=== PATIENT | male | born 1980 | race Caucasian/White ===

== ENCOUNTER 2020-02-23 11:23 | Emergency (ER) | payer OTHER ==
[2020-02-23] MEDS ORDERED: TETANUS,DIPHTHERIA,PERTUSSIS 1 EA SYG IM ONE (12:00)
[2020-02-23] MEDS ORDERED: LIDOCAINE 1% W/ EPINEPHRINE 20 ML VIAL INJ ONE (12:39)
--- NOTE | 2020-02-23 12:54 | CT ---
Study: CT of the Head. CT of the Face. Indication: head trauma Technique: Axial CT images of the head were acquired without intravenous contrast. In addition, axial CT images were acquired of the face without intravenous contrast. Coronal and sagittal reformats performed. This exam was performed according to our departmental dose-optimization program, which includes automated exposure control, adjustment of the mA and/or kV according to patient size and/or use of iterative reconstruction technique. Comparison: None. Findings: No CT evidence of acute ischemia, acute hemorrhage, mass, mass effect, midline shift, or extra-axial fluid collection. Ventricles are normal in configuration without hydrocephalus. Brain parenchyma demonstrates a normal appearance for patient age. Paranasal sinuses are adequately aerated. Mastoid air cells are adequately aerated. Osseous structures and soft tissues are unremarkable. No facial fracture identified. Impression: No CT evidence of acute intracranial abnormality. No acute facial fracture. Electronically signed by: Lai Smith MD 02/23/2020 12:52 PM CDT
[2020-02-23] MEDS ORDERED: CLINDAMYCIN PHOSPHATE 150 MG/ML VIAL IM ONE (13:42)
--- NOTE | 2020-02-23 13:48 | ED.PDOC ---
History of Present Illness - General Chief Complaint: Laceration Stated Complaint: laceration - left side face Time Seen by Provider: 02/23/20 11:59 Source: patient, RN notes reviewed, Vital Signs reviewed Exam Limitations: no limitations - History of Present Illness Initial Comments: Patient is a 39-year-old white male who was out loading steel on his trailer when a piece fell and hit him in the left side of his periorbital area. There was no loss of consciousness. Patient was knocked to the ground. Patient denies any visual field changes. He denies any headache, numbness, tingling, nausea, vomiting or diarrhea. Nothing makes the pain better or worse. This happened just prior to arrival. There is no radiation of the pain. It is moderate in intensity. It is sharp and stabbing in nature. Occurred: just prior to arrival Severity: moderate Pain Location: head Method of Injury: direct blow Improving Factors: cold therapy Worsening Factors: nothing Loss of Consciousness: no loss of consciousness Associated Symptoms (Fall): denies symptoms Allergies/Adverse Reactions: Allergies Tramadol Allergy (Verified 02/23/20 12:03) Home Medications: Ambulatory Orders Clindamycin HCl [Cleocin] 300 mg PO Q6H #28 capsule 02/23/20 Review of Systems - Review of Systems Constitutional: States: no symptoms reported, see HPI. Denies: chills, fever, malaise, weakness EENTM: States: no symptoms reported. Denies: eye pain, blurred vision, tearing, double vision, ear pain, ear discharge, nose pain, nose congestion Respiratory: States: no symptoms reported. Denies: cough, short of breath, stridor, wheezing Cardiology: States: no symptoms reported. Denies: chest pain, palpitations, syncope Gastrointestinal/Abdominal: States: no symptoms reported. Denies: abdominal pain, diarrhea, nausea, vomiting Genitourinary: States: no symptoms reported Musculoskeletal: States: see HPI, other - Swelling around the left periorbital area laterally.. Denies: back pain, neck pain Skin: States: see HPI, other - 2 lacerations near the left periorbital area. 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 Hx Hepatitis C: No Surgical History: tonsillectomy - Vaccination History Hx Tetanus, Diphtheria Vaccination: No Hx Pneumococcal Vaccination: Yes - Social History Hx Tobacco Use: Yes Hx Chewing Tobacco Use: Yes Hx Alcohol Use: No - Activities of Daily Living Hospice Agency (if applicable):: None - Female History Patient is a Female of Child Bearing Age (10 -59 yrs old): No Patient : No Family Medical History - Family History Mother Family History: Unknown Physical Exam - Physical Exam General Appearance: Alert, Anxious, Obvious distress, Unkempt, Well Developed, Well Hydrated, Well Nourished Head Injury: no evidence of injury, active bleeding, contusions - Patient with mild ecchymoses periorbitally on the left., lacerations Eye Exam: bilateral normal ENT Exam: hearing grossly normal, no evidence of ENT injury, no dental injury Neck Exam: non-tender, full range of motion, normal alignment, normal inspection Cardiovascular/Respiratory: regular rate, rhythm, no M/R/G, normal peripheral pulses, no JVD, normal breath sounds, no respiratory distress Gastrointestinal/Abdominal: normal bowel sounds, non tender, soft Back Exam: normal inspection, no CVA tenderness, no vertebral tenderness Extremity Exam: no evidence of injury, normal range of motion, non-tender 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 - [place] Coma Score Best Eye Response (Paige): (4) open spontaneously Best Verbal Response ([place]): (5) oriented Best Motor Response (Paige): (6) obeys commands [place] Total: 15 Progress - Progress Progress: 02/23/20 13:51 Differential diagnosis: Laceration, periorbital fracture, skull fracture, intraparenchymal bleed among others. Patient tolerated the procedure well. Patient started on antibiotics. Patient able to ambulate without difficulty. Normal vision out of that left eye after the procedure. Plan on discharge home on antibiotics. Patient to return in 5 days for suture removal. Of discussed this plan of care with the patient and he voices understanding and agreement with the plan of care. Fernando Matt M.D. #[id number] - Results/Orders Results/Orders: Study: CT of the Head. CT of the Face. Indication: head trauma Technique: Axial CT images of the head were acquired without intravenous contrast. In addition, axial CT images were acquired of the face without intravenous contrast. Coronal and sagittal reformats performed. This exam was performed according to our departmental dose-optimization program, which includes automated exposure control, adjustment of the mA and/or kV according to patient size and/or use of iterative reconstruction technique. Comparison: None. Findings: No CT evidence of acute ischemia, acute hemorrhage, mass, mass effect, midline shift, or extra-axial fluid collection. Ventricles are normal in configuration without hydrocephalus. Brain parenchyma demonstrates a normal appearance for patient age. Paranasal sinuses are adequately aerated. Mastoid air cells are adequately aerated. Osseous structures and soft tissues are unremarkable. No facial fracture identified. Impression: No CT evidence of acute intracranial abnormality. No acute facial fracture. Electronically signed by: Lai Smith MD 02/23/2020 12:52 PM Procedures - Laceration/Wound Repair Left Face Wound Length (cm): 0.5 Wound's Depth, Shape: linear Wound Explored: clean Irrigated w/ Saline (cc's): 250 Betadine Prep?: No Anesthesia: Lidocaine w/ Epi Volume Anesthetic (cc's): 2 Wound Debrided: No wound debridement Wound Repaired With: dermabond Layer Closure?: No Sterile Dressing Applied?: No Splint Applied?: No Sling Applied?: No Progress: Patient tolerated the procedure well. There were no complications. Estimated blood loss less than 1 mL. Wound closed with Dermabond. Good wound edge approximation. Left Upper Face Wound Length (cm): 5.0 Wound's Depth, Shape: into muscle, irregular, flap Wound Explored: no foreign body removed Irrigated w/ Saline (cc's): 250 Betadine Prep?: No Anesthesia: Lidocaine w/ Epi Volume Anesthetic (cc's): 5 Wound Debrided: No wound debridement Wound Repaired With: sutures Suture Size/Type: 6:0, prolene Number of Sutures: 11 Layer Closure?: No Sterile Dressing Applied?: No Splint Applied?: No Sling Applied?: No Progress: Wound extended from the lateral aspect of the left cheek superiorly over the but under the eyebrow. It was a deep laceration but was superficially closed at the skin level.Wound was extensively irrigated with at least 250 mL's of normal saline. No foreign bodies were noted. Wound was closed with 6-0 Prolene, simple interrupted sutures. Estimated blood loss less than 3 mL's. Patient tolerated the procedure well. There were no complications. Wound edges well approximated and hemostasis achieved. Departure - Departure Clinical Impression: Need for prophylactic vaccination against diphtheria, tetanus, acellular pertussis, poliovirus, and hepatitis B virus Facial laceration Qualifiers: Encounter type: initial encounter Qualified Code(s): S01.81XA - Laceration without foreign body of other part of head, initial encounter Eyelid laceration, left Qualifiers: Encounter type: initial encounter Qualified Code(s): S01.112A - Laceration without foreign body of left eyelid and periocular area, initial encounter Facial contusion Qualifiers: Encounter type: initial encounter Qualified Code(s): S00.83XA - Contusion of other part of head, initial encounter Periorbital contusion of left eye Qualifiers: Encounter type: initial encounter Qualified Code(s): S05.12XA - Contusion of eyeball and orbital tissues, left eye, initial encounter Time of Disposition: 13:58 Disposition: Discharge to Home or Self Care Condition: Good Departure Forms: ED Discharge - Pt. Copy, Patient Portal Self Enrollment Instructions: DI for Laceration Repair, DI for Laceration Repair With Dermabond Diet: resume usual diet Activity: increase activity as tolerated Prescriptions: Clindamycin HCl [Cleocin] 300 mg PO Q6H #28 capsule Home Medications: Ambulatory Orders Clindamycin HCl [Cleocin] 300 mg PO Q6H #28 capsule 02/23/20 Additional Instructions: Patient return in 5 days for suture removal. Patient to start antibiotics today.
[2020-02-23 14:09] VITALS: BP 145/93; TEMP 97.9; O2SAT 97
== END 2020-02-23 14:09 | disposition home or self-care (01) ==
LOC: ER 11:23
DX: S01.81XA Laceration without foreign body of other part of head, initial encounter (principal); W22.8XXA Striking against or struck by other objects, initial encounter; S00.83XA Contusion of other part of head, initial encounter; S01.112A Laceration without foreign body of left eyelid and periocular area, initial encounter; S05.12XA Contusion of eyeball and orbital tissues, left eye, initial encounter; Y92.9 Unspecified place or not applicable
CPT/HCPCS: 70450; 70480; 90471; 90715; J3490

== ENCOUNTER 2020-03-05 15:19 | Emergency (ER) | payer OTHER ==
--- NOTE | 2020-03-05 15:45 | ED.PDOC ---
History of Present Illness - General Chief Complaint: General Stated Complaint: Bilateral rib pain Time Seen by Provider: 03/05/20 15:21 - History of Present Illness Initial Comments: 39 yo male with pmh of gout, was moving metal on a trailer on February 17 and loss his balance and fell over head first. He was evaluated at this time, and had negative workup. Had large laceration on left eyebrow, with 14 sutures placed. He was suppose to have sutures removed on February 27, but didn't think they were ready to come out. Since his injury he has had continued bilateral rib pain. Feel short of breath, but no chest pain. Otherwise doing well without complaints. no change in mental status. Denies Smoking or ETOH. no new injury. no fever. Allergies/Adverse Reactions: Allergies Tramadol Allergy (Verified 03/05/20 15:56) Review of Systems - Review of Systems Constitutional: Denies: chills, diaphoresis, fever, weakness EENTM: Denies: eye pain, tearing, double vision, ear discharge, nose congestion Respiratory: States: short of breath. Denies: cough, orthopnea, stridor Cardiology: Denies: chest pain, edema, palpitations, syncope Gastrointestinal/Abdominal: Denies: abdominal pain, diarrhea, nausea, vomiting Genitourinary: Denies: frequency Musculoskeletal: States: muscle pain. 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 Hx Hepatitis C: No - Vaccination History Hx Tetanus, Diphtheria Vaccination: No Hx Pneumococcal Vaccination: Yes - Social History Hx Tobacco Use: Yes Hx Chewing Tobacco Use: Yes Hx Alcohol Use: No - Female History Patient : No Family Medical History - Family History Mother Family History: Unknown Physical Exam - Physical Exam General Appearance: Alert, Comfortable Eye Exam: left other - lateral to left eybrown 14 sutures placed, appears well adhered without drainage or sign of infection, bilateral normal Ears, Nose, Throat: hearing grossly normal, normal ENT inspection Neck: non-tender, full range of motion, supple, normal inspection Respiratory: lungs clear, normal breath sounds, no respiratory distress, no accessory muscle use - bilateral rib tenderness without brusing . 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 Bedside Fast negative. Declines anything for pain. The data reviewed when caring for this patient included: nurse notes etc. CT chest was negative for acute traumatic injuries. pulmonary nodules noted and patient aware of this and knows to follow up with his pcp. EKg showed sinus bradycardia with out any evidence of ischemia. HR 51. The history and assessments from nurses notes were reviewed and considered, and the patient's home medication list was also reviewed and considered. My assessment and the results of testing completed here in the ED were discussed with the patient/family. All questions were answered, and they express understanding of my assessment and the plan. They have been instructed to return if their symptoms worsen, and have been asked to follow up with their primary care physician to recheck today's presenting complaint. 03/05/20 16:20 03/05/20 16:40 03/05/20 16:42 Departure - Departure Clinical Impression: Rib pain, Pulmonary nodule Disposition: Discharge to Home or Self Care Condition: Excellent Departure Forms: ED Discharge - Pt. Copy, Patient Portal Self Enrollment Instructions: Muscle Strain, Chest Pain That Is Not Caused by the Heart (DC) Additional Instructions: ibuprofen 600 mg three times a day with food and milk, magnesium 400 mg daily.
[2020-03-05 15:56] VITALS: TEMP 97.1
--- NOTE | 2020-03-05 16:30 | CT ---
PROCEDURE: CT Chest Without Intravenous Contrast CLINICAL INDICATION: The patient is 39 years years old, Male; chest trauma TECHNIQUE: Axial computed tomography images of the chest without intravenous contrast. Sagittal and coronal reformatted images were created and reviewed. This CT exam was performed using one or more of the following dose reduction techniques: automated exposure control, adjustment of the mA and/or kV according to patient size, and/or use of iterative reconstruction technique. COMPARISON: No relevant prior studies available. FINDINGS: LUNGS: There is a 4 mm x 2 mm nodule in the right middle lobe abutting the minor fissure (series CT 5, image 31). Additional tiny 2 mm nodular densities are noted, one in the right middle lobe and another in the left upper lobe (series CT 5, images 34 and 11, respectively). There is no gross consolidation. There is minimal dependent atelectasis or scarring bilaterally. PLEURAL SPACE: There are no pleural effusions or pneumothoraces. HEART: Unremarkable. No cardiomegaly. No significant pericardial effusion. BONES/JOINTS: There is no evidence of acute fracture, osseous destruction or osteoblastic changes. Please note that T12 is not included in the [id number]. SOFT TISSUES: The soft tissues of the chest wall are unremarkable. VASCULATURE: Unremarkable. No abdominal aortic aneurysm. LYMPH NODES: There is no evidence of hilar, mediastinal or axillary adenopathy. SPLEEN: The visualized upper abdominal structures are unremarkable with the exception of a single tiny accessory splenule. IMPRESSION: Tiny nodular densities in the lungs as described. Fleischner Society Guidelines (MacMahon, et al. Radiology 2017; 284(1):228-43) suggest the following. For low-risk patients, no follow-up is necessary. For high-risk patients (smoking history or other known risk factors) an optional chest CT at 12 months could be performed. No acute abnormalities in the chest. Electronically signed by: Linda Mccullough MD 03/05/2020 4:28 PM CDT
[2020-03-05 16:46] VITALS: BP 120/82; O2SAT 97
== END 2020-03-05 16:46 | disposition home or self-care (01) ==
LOC: ER 15:19
DX: R07.81 Pleurodynia (principal); R91.1 Solitary pulmonary nodule; R06.02 Shortness of breath; R00.0 Tachycardia, unspecified; M10.9 Gout, unspecified; Z85.89 Personal history of malignant neoplasm of other organs and systems; Z87.891 Personal history of nicotine dependence